=== PATIENT | female | born 1965 ===

== ENCOUNTER 2018-01-04 13:58 | Observation (INO) | payer SELFPAY ==
[2018-01-04] MEDS ORDERED: Sodium Chloride 0.9% 500 ML IV STA (14:40)
--- NOTE | 2018-01-04 14:44 | ED PDOC ---
HPI: Chest Pain Time Seen by Provider: 01/04/18 14:25 Chief Complaint (Nursing): Chest Pain Chief Complaint (Provider): Chest pain History Per: Patient History/Exam Limitations: no limitations Onset/Duration Of Symptoms: Days (1) Current Symptoms Are (Timing): Still Present Quality: "Pain" Associated Symptoms: denies: Nausea Additional Complaint(s): 52yo female with history of high cholesterol, presents to ER with complaints of left sided chest pain, radiating to her neck and left shoulder. Patient states she took Tylenol last night with no relief of symptoms. She denies any associated headache, abdominal pain, left pain, numbness, tingling. She denies any recent long travels or hormone treatments as well. Of note, patient has a secondary complaint of cold symptoms including fevers, nasal congestion and occasional shortness of breath for the past week. She has been taking Tylenol for these symptoms as well with no relief. She denies any associated cough. No other complaints. - Risk Factors PE Risk Factors: Neg: Extremity Immobilization/Fx, Decreased Mobilty /Activity, Estrogen Usage Past Medical History Reviewed: Historical Data, Nursing Documentation, Vital Signs Vital Signs: Last Vital Signs Temp 98.6 F 01/04/18 14:09 Pulse 78 01/04/18 14:42 Resp 18 01/04/18 14:09 BP 119/75 01/04/18 14:09 Pulse Ox 100 01/04/18 16:57 - Medical History PMH: Hypercholesterolemia, Chronic Pain (back) - Surgical History Surgical History: No Surg Hx - Family History Family History: States: No Known Family Hx - Allergies Allergies/Adverse Reactions: Allergies Allergy/AdvReac Type Severity Reaction Status Date / Time morphine AdvReac DIZZINESS Verified 01/04/18 14:04 Review of Systems ROS Statement: Except As Marked, All Systems Reviewed And Found Negative Constitutional: Positive for: Fever ENT: Positive for: Nose Congestion Cardiovascular: Positive for: Chest Pain Respiratory: Negative for: Cough Gastrointestinal: Negative for: Abdominal Pain Neurological: Negative for: Weakness, Numbness Physical Exam - Reviewed Nursing Documentation Reviewed: Yes Vital Signs Reviewed: Yes - Physical Exam Appears: Positive for: Non-toxic Head Exam: Positive for: ATRAUMATIC, NORMAL INSPECTION, NORMOCEPHALIC Skin: Positive for: Normal Color Eye Exam: Positive for: Normal appearance, EOMI, PERRL ENT: Positive for: Nasal Congestion. Negative for: Pharyngeal Erythema, Tonsillar Exudate, Tonsillar Swelling Neck: Positive for: Supple Cardiovascular/Chest: Positive for: Regular Rate, Rhythm. Negative for: Chest Non Tender (mild tenderness to palpation of left chest wall) Respiratory: Positive for: Normal Breath Sounds. Negative for: Wheezing, Respiratory Distress Pulses-Dorsalis Pedis (L): 2+ Pulses-Dorsalis Pedis (R): 2+ Gastrointestinal/Abdominal: Positive for: Normal Exam, Soft. Negative for: Tenderness Back: Positive for: Normal Inspection Extremity: Positive for: Normal ROM. Negative for: Pedal Edema, Calf Tenderness Neurologic/Psych: Positive for: Alert, Oriented. Negative for: Motor/Sensory Deficits - Laboratory Results Result Diagrams: 01/04/18 14:58 01/04/18 14:58 Interpretation Of Abn Labs: 11.4 wbc; 505 dimer - ECG ECG: Positive for: Interpreted By Me, Viewed By Me ECG Rhythm: Positive for: Normal QRS, Normal ST Segment, Sinus Rhythm O2 Sat by Pulse Oximetry: 100 (RA) Pulse Ox Interpretation: Normal - Radiology X-Ray: Interpreted by Me, Viewed By Me X-Ray Interpretation: No Acute Disease - Progress ED Course And Treament: 1831: Stable. Dr. Wolf to take over care. Fu on CT. Medical Decision Making Medical Decision Making: Impression: Chest pain, nasal congestion Plan: -- CXR -- Labs -- EKG -- Rapid Flu -- Tylenol 650 mg PO -- Rapid Flu Time: 1530 CXR FINDINGS: LUNGS: Poor inspiration with low lung volumes, crowded bronchovascular markings and mild bibasilar atelectasis. . PLEURA: No significant pleural effusion identified, no pneumothorax apparent. CARDIOVASCULAR: Normal. OSSEOUS STRUCTURES: No significant abnormalities. VISUALIZED UPPER ABDOMEN: Normal. OTHER FINDINGS: None. IMPRESSION: Poor inspiration with low lung volumes, crowded bronchovascular markings and mild bibasilar atelectasis. Time: 1555 Serology report reviewed, patient negative for Influenza A/B Time: 1635 Labs reviewed, patient with elevated DDimer. CT Angio Chest ordered. Scribe Attestation: Documented by Debo Brian acting as a scribe for Rosalio Ramirez MD. Provider Attestation: All medical record entries made by the Scribe were at my direction and personally dictated by me. I have reviewed the chart and agree that the record accurately reflects my personal performance of the history, physical exam, medical decision making, and the department course for this patient. I have also personally directed, reviewed, and agree with the discharge instructions and disposition. Disposition - Clinical Impression Clinical Impression: Chest pain - Patient ED Disposition Is Patient to be Admitted: Transfer of Care - Disposition Disposition Time: 18:58 Condition: STABLE Patient Signed Over To: Jose Wolf
[2018-01-04 15:20] LABS: BASO % 0.3 % (0.0-2.0); EOS % 0.4 % (0.0-4.0); HEMOGLOBIN 14.1 g/dL (12.0-16.0); LYMPH # 3.4 K/uL (1.0-4.3); LYMPH % 30.3 % (20.0-40.0); MEAN CELL VOLUME 89.1 fl (81.0-99.0); MEAN CORPUSCULAR HEMOGLOBIN 31.2 pg (27.0-31.0); MEAN PLATELET VOLUME 8.1 fl (7.2-11.7); MONO # 0.8 K/uL (0.0-0.8); MONO % 7.4 % (0.0-10.0); NEUT % 61.6 % (50.0-75.0); NRBC % 0.2 % (0.0-0.0); RBC 4.52 Mil/uL (3.80-5.20); WHITE BLOOD COUNT 11.4 K/uL (4.8-10.8)
--- NOTE | 2018-01-04 15:32 | RAD ---
HISTORY: dyspnea COMPARISON: No prior. FINDINGS: LUNGS: Poor inspiration with low lung volumes, crowded bronchovascular markings and mild bibasilar atelectasis. . PLEURA: No significant pleural effusion identified, no pneumothorax apparent. CARDIOVASCULAR: Normal. OSSEOUS STRUCTURES: No significant abnormalities. VISUALIZED UPPER ABDOMEN: Normal. OTHER FINDINGS: None. IMPRESSION: Poor inspiration with low lung volumes, crowded bronchovascular markings and mild bibasilar atelectasis.
[2018-01-04 15:39] LABS: ALB/GLOB RATIO 1.1 (1.0-2.1); ALBUMIN 4.2 g/dL (3.5-5.0); ALT/SGPT 35 U/L (9-52); AST/SGOT 35 U/L (14-36); BLOOD UREA NITROGEN 12 mg/dl (7-17); CALCIUM 9.4 mg/dL (8.4-10.2); GFR AFRICAN-AMERICAN > 60; GFR NON-AFRICAN AMERICAN > 60
[2018-01-04 15:44] LABS: PARTIAL THROMBOPLASTIN TIME 30.5 Seconds (25.6-37.1); PROTHROMBIN TIME 11.6 Seconds (9.8-13.1)
[2018-01-04] MEDS ORDERED: Iodixanol 320 MG/ML 100 ML BOTTLE IV ONE (17:32)
--- NOTE | 2018-01-04 19:09 | ED PDOC ---
- Laboratory Results Result Diagrams: 01/04/18 14:58 01/04/18 14:58 - ECG O2 Sat by Pulse Oximetry: 100 (RA) Pulse Ox Interpretation: Normal Medical Decision Making Medical Decision Making: Receiving sign out: Patient signed out to me by Dr. Ramirez at 18:[address] Angio of chest. Time: 1923 CT Angio Chest FINDINGS: Pulmonary arteries: No visible acute pulmonary embolism. Aorta: There are atherosclerotic aortic calcifications. No thoracic aortic aneurysm. Lungs: There is minimal bibasilar atelectatic change or scarring. There is a calcified granuloma in the right upper lobe. No mass. Pleural space: Unremarkable. No significant effusion. No pneumothorax. Heart: Unremarkable. No cardiomegaly. No significant pericardial effusion. No evidence of RV dysfunction. Mediastinum: There is a small hiatal hernia. Bones/joints: There are degenerative changes of the spine. No acute fracture. No dislocation. Soft tissues: Unremarkable. Lymph nodes: There are calcified mediastinal and bilateral hilar lymph nodes consistent with the sequela of prior granulomatous infection. IMPRESSION: 1. There is a small hiatal hernia. 2. No visible acute pulmonary embolism. Time: 1931 Patient has negative CTA for blood clot however patient has significant cardiac comorbidities and will require observation for continuous cardiac monitoring and serial troponin. Case discussed with Dr. Anglin, hospitalist senior executive compensation analyst, who will admit patient. Scribe Attestation: Documented by Debo Brian acting as a scribe for Jose Wolf MD. Provider Attestation: All medical record entries made by the Scribe were at my direction and personally dictated by me. I have reviewed the chart and agree that the record accurately reflects my personal performance of the history, physical exam, medical decision making, and the department course for this patient. I have also personally directed, reviewed, and agree with the discharge instructions and disposition. Disposition - Clinical Impression Clinical Impression: Chest pain - POA Present On Arrival: None - Disposition Disposition: Hospitalized as Observation Patient Disposition Time: 19:32 Condition: STABLE
--- NOTE | 2018-01-04 20:37 | CP.PCM.HP ---
History of Present Illness - History of Present Illness History of Present Illness: This is a 52 yo female with pmh of hypercholesterolemia who presented to the ED on 01/04/2018 in the afternoon complaining of left sided chest pain radiating to the back and left shoulder, described as a pressure like sensation, constant, moderate in severity. She denies having this pain before. It is not related to exertion. No diaphoresis. However it is associated with shortness of breath. . She admits to recent cold symptoms including fevers, nasal congestion. In the ED, the patient was initally tachycardic. CT scan of the chest was performed to rule out pulmonary embolism given her tachycardia and SOB w/ chest pain; it was negative for PE. Troponin is negative. EKG is nonsichemic. The patient is to be placed on telemetry/observation to evaulate for acute coronary syndrome. Patient denies constipation, vomiting, headache, weakness. Present on Admission - Present on Admission Any Indicators Present on Admission: No Review of Systems - Hematologic/Lymphatic Additional comments: A 12 point ROS is negative other than what was documented in HPI. Past Patient History - Infectious Disease Hx of Infectious Diseases: None - Past Medical History & Family History Pertinent Family History: Father of heart problems at age 85. - Past Social History Smoking Status: Never Smoked Alcohol: None - CARDIAC Hx Cardiac Disorders: No Hx Hypercholesterolemia: Yes - PSYCHIATRIC Hx Substance Use: No Meds Allergies/Adverse Reactions: Allergies Allergy/AdvReac Type Severity Reaction Status Date / Time morphine AdvReac DIZZINESS Verified 01/04/18 14:04 Physical Exam - Additional Findings Additional findings: Physical exam: Constitutional- cooperative, awake, alert Head- NCAT, PERRL Eye- PERRL, EOMI ENT- normal exam, MMM. Neck- normal inspection, supple, no JVD Respiratory- CTAB, no wheezes rales rhonchi Cardiovascular- RRR, +S1, +S2 no MRG GI/Abdominal- normal bowel sounds, soft, no mass, no hsm Skin- warm, dry Extremities Exam- normal capillary refill, normal inspection Neurological Exam- alert, awake, oriented Psych- normal mood, normal affect Results - Vital Signs Recent Vital Signs: Last Vital Signs Temp 98 F 01/04/18 20:27 Pulse 98 H 01/04/18 20:27 Resp 18 01/04/18 20:27 BP 116/68 01/04/18 20:27 Pulse Ox 99 01/04/18 20:27 - Labs Result Diagrams: 01/04/18 14:58 01/04/18 14:58 Labs: Laboratory Results - last 24 hr 01/04/18 01/04/18 01/04/18 14:58 14:58 14:58 WBC 11.4 H RBC 4.52 Hgb 14.1 Hct 40.3 MCV 89.1 MCH 31.2 H MCHC 35.0 RDW 13.0 Plt Count 327 MPV 8.1 Neut % (Auto) 61.6 Lymph % (Auto) 30.3 [place] % (Auto) 7.4 Eos % (Auto) 0.4 Baso % (Auto) 0.3 Neut # (Auto) 7.0 Lymph # (Auto) 3.4 [place] # (Auto) 0.8 Eos # (Auto) 0.0 Baso # (Auto) 0.0 PT 11.6 INR 1.0 APTT 30.5 D-Dimer, Quantitative 505 H Sodium 141 Potassium 3.8 Chloride 102 Carbon Dioxide 29 Anion Gap 14 BUN 12 Creatinine 0.7 Est GFR ( Amer) > 60 Est GFR (Non-Af Amer) > 60 Random Glucose 90 Calcium 9.4 Total Bilirubin 0.5 AST 35 ALT 35 Alkaline Phosphatase 116 Troponin I < 0.0120 Total Protein 7.8 Albumin 4.2 Globulin 3.6 Albumin/Globulin Ratio 1.1 Influenza Typ A,B (EIA) 01/04/18 14:58 WBC RBC Hgb Hct MCV MCH MCHC RDW Plt Count MPV Neut % (Auto) Lymph % (Auto) [place] % (Auto) Eos % (Auto) Baso % (Auto) Neut # (Auto) Lymph # (Auto) [place] # (Auto) Eos # (Auto) Baso # (Auto) PT INR APTT D-Dimer, Quantitative Sodium Potassium Chloride Carbon Dioxide Anion Gap BUN Creatinine Est GFR ( Amer) Est GFR (Non-Af Amer) Random Glucose Calcium Total Bilirubin AST ALT Alkaline Phosphatase Troponin I Total Protein Albumin Globulin Albumin/Globulin Ratio Influenza Typ A,B (EIA) Negative for flu a/b Assessment & Plan - Assessment and Plan (Free Text) Plan: ASSESSMENT 1) Chest pain, evaluate for acute coronary syndrome, also may be musculoskeletal in nature vs GERD sx. 2) Hypercholesterolemia PLAN - Place on telemetry/observation - Consider cardiology consultation if troponins positive or EKG changes - Serial troponins for total of 3 q 8 hours - Repeat EKG in AM - ASA given in ED - Nitrostat PRN for chest pain - DVT prophylaxis with heparin sq - Plan for discharge tomorrow AM if workup negative
[2018-01-05 06:37] LABS: HDL CHOLESTEROL 39 MG/DL (30-70)
[2018-01-05 06:48] LABS: LDL CHOLESTEROL 152 mg/dL (0-129)
[2018-01-05 08:22] VITALS: BP 90/58; PULSE 77; RESP 20; TEMP 98; O2SAT 95
--- NOTE | 2018-01-05 09:56 | CT ---
PROCEDURE: CT Chest with contrast (Pulmonary Angiogram) HISTORY: Chest pain COMPARISON: None available. TECHNIQUE: Axial computed tomography images were obtained of the chest in the pulmonary arterial phase of enhancement. Coronal and sagittal reformatted images were created and reviewed. Intravenous contrast dose: 98 cc Visipaque 320 [id number] 0 0 Radiation dose: Total exam DLP = 327.7mGy-cm. This CT exam was performed using one or more of the following dose reduction techniques: Automated exposure control, adjustment of the mA and/or kV according to patient size, and/or use of iterative reconstruction technique. FINDINGS: PULMONARY ARTERIES: Unremarkable. No pulmonary embolism. Pulmonary trunk measures approximately 2.43 cm AORTA: No acute findings. No thoracic aortic aneurysm. Ascending thoracic aorta measures approximately 2.5 cm and descending thoracic aorta measures approximately 2.04 cm LUNGS: Small calcified granuloma right upper lobe bordering the pleural surface. . There is also a small somewhat linear/nodular focus of presumed scarring in the right middle lobe as well. . . There is a tiny cyst the lateral aspect right lower lobe near the fissure. . Mild passive type atelectasis/ scarring changes both lung bases. PLEURAL SPACES: Unremarkable. No effusion or pneumothorax. HEART: The heart is size is upper limits of normal/ borderline enlarged. . There is a small amount of fluid seen adjacent to the ascending thoracic aorta and main pulmonary trunk. LYMPH NODES: Small calcified subcarinal lymph nodes suggesting prior exposure to a granulomatous disease process. No significant hilar adenopathy. BONES, CHEST WALL: Minor multilevel degenerative spondylosis of the thoracic spine. OTHER FINDINGS: There is a small hiatal hernia slight wall thickening of the distal esophagus likely due to protrusion gastric mucosa. Possibility of esophagitis not excluded IMPRESSION: No evidence of acute central pulmonary embolus. Small calcified granuloma right upper lobe small calcified subcarinal lymph node consistent with prior exposure to a granulomatous disease process. Small hiatal hernia. Preliminary report provided by overnight radiology service.
--- NOTE | 2018-01-05 10:58 | CP.PCM.DIS ---
Provider - Provider Date of Admission: 01/04/18 19:32 Attending physician: Carloz Anglin DO Primary care physician: None Time Spent in preparation of Discharge (in minutes): 10 Hospital Course - Lab Results Lab Results: Most Recent Lab Values WBC 11.4 K/uL (4.8-10.8) H 01/04/18 14:58 RBC 4.52 Mil/uL (3.80-5.20) 01/04/18 14:58 Hgb 14.1 g/dL (12.0-16.0) 01/04/18 14:58 Hct 40.3 % (34.0-47.0) 01/04/18 14:58 MCV 89.1 fl (81.0-99.0) 01/04/18 14:58 MCH 31.2 pg (27.0-31.0) H 01/04/18 14:58 MCHC 35.0 g/dL (33.0-37.0) 01/04/18 14:58 RDW 13.0 % (11.5-14.5) 01/04/18 14:58 Plt Count 327 K/uL (130-400) 01/04/18 14:58 MPV 8.1 fl (7.2-11.7) 01/04/18 14:58 Neut % (Auto) 61.6 % (50.0-75.0) 01/04/18 14:58 Lymph % (Auto) 30.3 % (20.0-40.0) 01/04/18 14:58 [place] % (Auto) 7.4 % (0.0-10.0) 01/04/18 14:58 Eos % (Auto) 0.4 % (0.0-4.0) 01/04/18 14:58 Baso % (Auto) 0.3 % (0.0-2.0) 01/04/18 14:58 Neut # (Auto) 7.0 K/uL (1.8-7.0) 01/04/18 14:58 Lymph # (Auto) 3.4 K/uL (1.0-4.3) 01/04/18 14:58 [place] # (Auto) 0.8 K/uL (0.0-0.8) 01/04/18 14:58 Eos # (Auto) 0.0 K/uL (0.0-0.7) 01/04/18 14:58 Baso # (Auto) 0.0 K/uL (0.0-0.2) 01/04/18 14:58 PT 11.6 Seconds (9.8-13.1) 01/04/18 14:58 INR 1.0 (0.9-1.2) 01/04/18 14:58 APTT 30.5 Seconds (25.6-37.1) 01/04/18 14:58 D-Dimer, Quantitative 505 ng/mlDDU (0-230) H 01/04/18 14:58 Sodium 141 mmol/l (132-148) 01/04/18 14:58 Potassium 3.8 MMOL/L (3.6-5.0) 01/04/18 14:58 Chloride 102 mmol/L (98-107) 01/04/18 14:58 Carbon Dioxide 29 mmol/L (22-30) 01/04/18 14:58 Anion Gap 14 (10-20) 01/04/18 14:58 BUN 12 mg/dl (7-17) 01/04/18 14:58 Creatinine 0.7 mg/dl (0.7-1.2) 01/04/18 14:58 Est GFR ( Amer) > 60 01/04/18 14:58 Est GFR (Non-Af Amer) > 60 01/04/18 14:58 Random Glucose 90 mg/dL (65-105) 01/04/18 14:58 Calcium 9.4 mg/dL (8.4-10.2) 01/04/18 14:58 Total Bilirubin 0.5 mg/dl (0.2-1.3) 01/04/18 14:58 AST 35 U/L (14-36) 01/04/18 14:58 ALT 35 U/L (9-52) 01/04/18 14:58 Alkaline Phosphatase 116 U/L (38-126) 01/04/18 14:58 Troponin I < 0.0120 ng/mL (0.00-0.120) 01/05/18 05:57 Total Protein 7.8 G/DL (6.3-8.2) 01/04/18 14:58 Albumin 4.2 g/dL (3.5-5.0) 01/04/18 14:58 Globulin 3.6 gm/dL (2.2-3.9) 01/04/18 14:58 Albumin/Globulin Ratio 1.1 (1.0-2.1) 01/04/18 14:58 Triglycerides 118 mg/DL (0-149) 01/05/18 05:54 Cholesterol 234 mg/dL (0-199) H 01/05/18 05:54 LDL Cholesterol Direct 152 mg/dL (0-129) H 01/05/18 05:54 HDL Cholesterol 39 MG/DL (30-70) 01/05/18 05:54 Influenza Typ A,B (EIA) Negative for flu a/b (NEGATIVE) 01/04/18 14:58 - Hospital Course Hospital Course: 52 yo female with pmh of hypercholesterolemia presented to the ED on 01/04/2018 complaining of left sided chest pain radiating to the back and left shoulder, described as a pressure like sensation, constant, moderate in severity. She denies having this pain before. It is not related to exertion. No diaphoresis. However it is associated with shortness of breath. . She admits to recent cold symptoms including fevers, nasal congestion. In the ED, the patient was initially tachycardic. CT scan of the chest was performed to rule out pulmonary embolism given her tachycardia and SOB w/ chest pain; it was negative for PE.patient was placed under observation in telemetry for chest pain to rule out ACS . Troponin x 3 were negative .EKG showed no ST - T wave changes . patient at presebnt feeling well, chest pain resolved Chest pain most likely atypical Will discharge patient home Counselled on low fat diet and exercise. Follow up with [facility] Dx Atypical chest pain Dyslipidemia ACS ruled out Discharge Exam - Head Exam Head Exam: ATRAUMATIC, NORMAL INSPECTION, NORMOCEPHALIC - Eye Exam Eye Exam: EOMI, Normal appearance, PERRL Pupil Exam: NORMAL ACCOMODATION - ENT Exam ENT Exam: Mucous Membranes Moist, Normal Exam - Neck Exam Neck exam: Full Rom, Normal Inspection - Respiratory Exam Respiratory Exam: Clear to PA & Lateral, NORMAL BREATHING PATTERN. absent: Rales, Rhonchi, Wheezes - Cardiovascular Exam Cardiovascular Exam: REGULAR RHYTHM, RRR, +S1, +S2. absent: JVD - GI/Abdominal Exam GI & Abdominal Exam: Normal Bowel Sounds, Soft. absent: Distended, Guarding, Rebound, Tenderness - Rectal Exam Rectal Exam: Deferred - Extremities Exam Extremities exam: normal capillary refill, normal inspection, pedal pulses present - Back Exam Back exam: NORMAL INSPECTION - Neurological Exam Neurological exam: Alert, CN II-XII Intact, Oriented x3, Reflexes Normal - Psychiatric Exam Psychiatric exam: Normal Affect, Normal Mood - Skin Skin Exam: Dry, Intact, Normal Color, Warm Discharge Plan - Follow Up Plan Condition: STABLE Disposition: HOME/ ROUTINE Instructions: Chest Pain (DC) Referrals: [facility] [Outside]
--- NOTE | 2018-01-06 12:17 | CARD ---
APPROVED REPORT EKG Measurement Heart [id number] <Conclusion> Sinus tachycardia Low voltage QRS Borderline ECG
== END 2018-01-05 12:31 | disposition home or self-care (01) ==
LOC: H.ER 13:58 → H.ERHOLD 19:32 → H.TEL 20:48
PROVIDERS: ADMIT Internal Medicine; ATTEND Internal Medicine
DX: R07.89 Other chest pain (principal); E78.5 Hyperlipidemia, unspecified; E78.00 Pure hypercholesterolemia, unspecified; J00 Acute nasopharyngitis [common cold]; K44.9 Diaphragmatic hernia without obstruction or gangrene; R79.1 Abnormal coagulation profile; Z88.6 Allergy status to analgesic agent
CPT/HCPCS: 36415; 71045; 71275; 80053; 80061; 84484; 85025; 85378; 85610; 85730; 87804; 96374; 99285; G0378; J1644; J1885; J7040; Q9967

== ENCOUNTER 2018-09-19 09:56 | Emergency (ER) | payer SELFPAY ==
[2018-09-19 10:01] VITALS: RESP 18; TEMP 97.9
--- NOTE | 2018-09-19 11:22 | RAD ---
Date of service: 09/19/2018 PROCEDURE: Left small finger radiographs. HISTORY: Crush injury COMPARISON: None. TECHNIQUE: AP radiograph of the left hand, as well as spot oblique and lateral images of left small finger were obtained. FINDINGS: LEFT SMALL FINGER: Crush injury distal tuft left 5th digit. Remainder of the left hand (as seen on the AP view) is grossly unremarkable. JOINTS: Normal. SOFT TISSUES: Soft tissue swelling attests to the acuity of the fracture. OTHER FINDINGS: None. IMPRESSION: Acute fracture/crush injury distal tuft left 5th digit.
--- NOTE | 2018-09-19 11:35 | ED PDOC ---
Upper Extremity Pain/Injury Time Seen by Provider: 09/19/18 10:14 Chief Complaint (Nursing): Upper Extremity Problem/Injury Chief Complaint (Provider): Left Finger Injury History Per: Patient History/Exam Limitations: no limitations Onset/Duration Of Symptoms: Days (X2) Current Symptoms Are (Timing): Still Present Additional Complaint(s): 52 year old female presenting for evaluation of left 5th digit injury last night. Patient states part of a bed frame fell on her left 5th digit last night. Patient reports taking Tylenol with minimal relief of pain. Past Medical History Reviewed: Historical Data, Nursing Documentation, Vital Signs Vital Signs: Last Vital Signs Temp 97.9 F 09/19/18 10:00 Pulse 72 09/19/18 10:00 Resp 18 09/19/18 10:00 BP 145/75 09/19/18 10:00 Pulse Ox 97 09/19/18 10:00 - Medical History PMH: Hypercholesterolemia, Chronic Pain (back) - Surgical History Surgical History: Appendectomy - Family History Family History: States: Unknown Family Hx - Home Medications Home Medications: Ambulatory Orders Medication Instructions Recorded Naproxen [Naprosyn] 500 mg PO BID PRN #15 tablet 09/19/18 - Allergies Allergies/Adverse Reactions: Allergies Allergy/AdvReac Type Severity Reaction Status Date / Time morphine AdvReac DIZZINESS Verified 09/19/18 10:05 Review of Systems ROS Statement: Except As Marked, All Systems Reviewed And Found Negative Musculoskeletal: Positive for: Hand Pain (left 5th digit pain) Physical Exam - Reviewed Nursing Documentation Reviewed: Yes Vital Signs Reviewed: Yes - Physical Exam Appears: Positive for: Non-toxic, No Acute Distress Extremity: Positive for: Other (ecchymosis to the distal 5th digit, decreased ROM secondary to pain, (-) obvious deformity, (-) subungual hematoma, (-) laceration) Neurologic/Psych: Positive for: Alert, Oriented - ECG O2 Sat by Pulse Oximetry: 97 Medical Decision Making Medical Decision Makin Initial Impression: Finger injury Plan: -Left 5th digit x-ray -Motrin 600mg PO -Reevaluation 1118 LEFT 5TH DIGIT X-RAY FINDINGS: LEFT SMALL FINGER: Crush injury distal tuft left 5th digit. Remainder of the left hand (as seen on the AP view) is grossly unremarkable. JOINTS: Normal. SOFT TISSUES: Soft tissue swelling attests to the acuity of the fracture. OTHER FINDINGS: None. IMPRESSION: Acute fracture/crush injury distal tuft left 5th digit. Finger splint placed. Scribe Attestation: Documented by James Dominguez, acting as a scribe for Josiane Torres MD. Provider Scribe Attestation: All medical record entries made by the Scribe were at my direction and personally dictated by me. I have reviewed the chart and agree that the record accurately reflects my personal performance of the history, physical exam, medical decision making, and the department course for this patient. I have also personally directed, reviewed, and agree with the discharge instructions and disposition. Disposition - Clinical Impression Clinical Impression: Fracture, finger, distal phalanx - Disposition Referrals: Nael Benitez MD [Staff Provider] - Disposition: Routine/Home Disposition Time: 11:52 Condition: STABLE Prescriptions: Naproxen [Naprosyn] 500 mg PO BID PRN #15 tablet PRN Reason: Pain, Moderate (4-7) Instructions: Finger Fracture Forms: [email or web address] (Dominican) Print Language: [email or web address]
[2018-09-19 12:13] VITALS: BP 116/70; PULSE 75
[2018-09-20 10:56] VITALS: O2SAT 97
== END 2018-09-19 12:14 | disposition home or self-care (01) ==
LOC: H.ER 09:56
DX: S62.637A Displaced fracture of distal phalanx of left little finger, initial encounter for closed fracture (principal); W20.8XXA Other cause of strike by thrown, projected or falling object, initial encounter; Z88.5 Allergy status to narcotic agent; G89.29 Other chronic pain